=== PATIENT | male | born 1945 | race Caucasian/White ===

== ENCOUNTER 2021-11-19 11:38 | Emergency (ER) | payer OTHER ==
[~2021-11-19] VITALS: Ht 182.9 cm; Wt 77.1 kg
[2021-11-19] MEDS ORDERED: METOPROLOL TARTRATE 1 MG/ML 5ML VIAL IV STA (11:55)
[2021-11-19] MEDS ORDERED: METOPROLOL TARTRATE 1 MG/ML 5ML VIAL IV ONE (12:00)
[2021-11-19 12:02] LABS: BASOPHILS % (AUTO) 0.5 % (0.0-5.0); EOSINOPHILS % (AUTO) 1.9 % (0.0-8.0); HEMATOCRIT 37.3 % (42-54); LYMPHOCYTES % (AUTO) 20.9 % (21.0-51.0); MEAN CORPUSCULAR HEMOGLOBIN 33.4 pg (27.0-33.0); MEAN CORPUSCULAR VOLUME 101.4 fL (79-99); NEUTROPHILS % (AUTO) 63.3 % (40.0-77.0); PLATELET COUNT (AUTO) 168 K/uL (130-400); RED BLOOD CELL COUNT(AUTO) 3.68 MIL/uL (4.50-6.20); RED CELL DISTRIBUTION WIDTH 14.3 % (11.0-15.5); WHITE BLOOD COUNT (AUTO) 5.7 K/uL (4.8-10.8)
[2021-11-19 12:05] LABS: APPEARANCE,URINE CLEAR (CLEAR); BILIRUBIN,URINE NEGATIVE (NEGATIVE); COLOR,URINE LIGHT-YELLOW (YELLOW); GLUCOSE, URINE (UA) NEGATIVE (NEGATIVE); KETONES,URINE NEGATIVE (NEGATIVE); LEUKOCYTE ESTERASE ,URINE 25 Leu/uL (NEGATIVE); NITRATE,URINE NEGATIVE (NEGATIVE); OCCULT BLOOD,URINE NEGATIVE (NEGATIVE); PH,URINE 6.5 (5.0-8.0); PROTEIN,URINE NEGATIVE (NEGATIVE); UROBILINOGEN,URINE 0.2 mg/dL (0.2-1.0)
[2021-11-19 12:08] LABS: BACTERIA,URINE RARE /HPF (None Seen)
[2021-11-19 12:23] LABS: INR 1.02 (0.85-1.15); PROTHROMBIN TIME 11.1 SEC (9.6-11.6)
[2021-11-19 12:43] LABS: ALBUMIN 3.5 g/dL (3.5-5.0); CREATININE 1.2 mg/dL (0.5-1.5); POTASSIUM 4.3 mmol/L (3.5-5.1)
[2021-11-19 13:27] VITALS: BP 149/105
[2021-11-19] MEDS ORDERED: APIX5TAB PO (14:00)
[2021-11-19] MEDS ORDERED: METO-408 PO (14:00)
== END 2021-11-19 14:52 | disposition home or self-care (01) ==
LOC: EDH 11:38
DX: I48.91 Unspecified atrial fibrillation (principal); D64.9 Anemia, unspecified; E78.00 Pure hypercholesterolemia, unspecified; I10 Essential (primary) hypertension; Z98.890 Other specified postprocedural states; Z88.8 Allergy status to other drugs, medicaments and biological substances
CPT/HCPCS: 99285; 96374; 71045; 82550; 83874; 84484; 80053; 85025; 85610; 87077; 87088; 87186; 81001; 36415; 93005; J3490

== ENCOUNTER 2023-08-11 13:36 | Emergency (ER) | payer OTHER ==
[~2023-08-11] VITALS: Ht 182.9 cm; Wt 73.0 kg
[~2023-08-11 13:36] MED LIST: ALFU10TA9 PO; APIX5TAB PO; ATOR10 PO; CARB1DRO40 OP; CYAN-35 PO; DOCU-116 PO; FERR-72 PO; FOLI0.8T3 PO; METO-408 PO; POLY17PO4 PO
[2023-08-11 14:07] LABS: BASOPHILS # (AUTO) 0.03 K/uL (0.00-0.20); BASOPHILS % (AUTO) 0.5 % (0.0-5.0); EOSINOPHILS # (AUTO) 0.18 K/uL (0.00-0.70); IMMATURE GRANULOCYTE ABSOLUTE 0.01 K/uL (0-1); LYMPHOCYTES # (AUTO) 2.2 K/uL (1.0-4.8); LYMPHOCYTES % (AUTO) 36.7 % (21.0-51.0); MEAN CORPUSCULAR HEMOGLOBIN 31.5 pg (27.0-33.0); MEAN CORPUSCULAR HGB CONC 32.4 g/dL (32.0-36.0); MEAN CORPUSCULAR VOLUME 97.2 fL (79-99); MONOCYTES # (AUTO) 0.4 K/uL (0.1-1.0); MONOCYTES % (AUTO) 7.4 % (3.0-13.0); NEUTROPHILS # (AUTO) 3.1 K/uL (1.8-7.7); NEUTROPHILS % (AUTO) 52.2 % (40.0-77.0); PLATELET COUNT (AUTO) 124 K/uL (130-400); RED BLOOD CELL COUNT(AUTO) 3.91 MIL/uL (4.50-6.20); RED CELL DISTRIBUTION WIDTH 14.6 % (11.0-15.5); WHITE BLOOD COUNT (AUTO) 5.9 K/uL (4.8-10.8)
[2023-08-11 14:15] LABS: CREATININE 1.2 mg/dL (0.5-1.3); POTASSIUM 4.6 mmol/L (3.5-5.1)
[2023-08-11 14:19] LABS: ALBUMIN 3.9 g/dL (3.5-5.0); BILIRUBIN,TOTAL 0.5 mg/dL (0.2-1.0); TOTAL PROTEIN, SERUM 7.5 g/dL (6.0-8.3)
[2023-08-11 14:38] LABS: INR 0.95 (0.85-1.15); PROTHROMBIN TIME 11.3 SEC (9.6-11.6)
[2023-08-11 14:39] LABS: PARTIAL THROMBOPLASTIN TIME 27.1 SEC (26.3-35.5)
[2023-08-11] MEDS: METOPROLOL TARTRATE 1 MG/ML 5ML VIAL IV ONE ×3 (17:05→18:04)
[2023-08-11] MEDS: METOPROLOL TARTRATE 25 MG TAB PO ONE (17:51)
[2023-08-11 19:33] VITALS: BP 144/96; PULSE 90; RESP 20; O2SAT 98
== END 2023-08-11 19:49 | disposition home or self-care (01) ==
LOC: EDH 13:36
DX: R00.0 Tachycardia, unspecified (principal); I48.91 Unspecified atrial fibrillation; E78.00 Pure hypercholesterolemia, unspecified; I10 Essential (primary) hypertension; Z79.01 Long term (current) use of anticoagulants; Z79.899 Other long term (current) drug therapy; Z85.118 Personal history of other malignant neoplasm of bronchus and lung; Z88.8 Allergy status to other drugs, medicaments and biological substances; Z98.890 Other specified postprocedural states
CPT/HCPCS: 99285; 96374; 71045; 84484; 80053; 83880; 85025; 85610; 85730; 36415; 96376; 93005; J3490 ×2

== ENCOUNTER → 2023-10-30 | Outpatient (CLI) | payer OTHER ==
[~2023-10-30] MED LIST changes: +ALFU10TA46 PO; -ALFU10TA9 PO; +IOHEXOL 350 MG/ML 100ML INFUS..BTL IV ONE; +METOPROLOL TARTRATE 1 MG/ML 5ML VIAL IV ONE
== END | disposition home or self-care (01) ==
LOC: RAH 07:51
PROVIDERS: ATTEND Internal Medicine Cardiovascular Disease
DX: R06.02 Shortness of breath (principal); M47.815 Spondylosis without myelopathy or radiculopathy, thoracolumbar region
CPT/HCPCS: 75574; J3490 ×3; Q9967